=== PATIENT | male | born 1975 | race Caucasian/White ===

== ENCOUNTER 2017-04-15 10:42 | Emergency (ER) | payer OTHER ==
[~2017-04-15] VITALS: Ht 177.8 cm; Wt 89.9 kg
[2017-04-15 10:45] VITALS: TEMP 36.7; Ht 177.8 cm; Wt 89.9 kg
[2017-04-15] MEDS ORDERED: LORAZEPAM 1 MG TAB SL STA (11:24)
--- NOTE | 2017-04-15 11:33 | EMERGENCY ROOM VISIT NOTE ---
History Report prepared by Joaquina: Nancy Louise Under the Supervision of: Dr. Salas Wilson M.D. First contact with patient: 11:17 Chief Complaint: ANXIETY Stated Complaint: CHEST PAIN PANIC History of Present Illness The patient is a 42 year old male who presents to the Emergency Room with complaints of increasing anxiety over the past three months. He currently rates his discomfort as a 6/10 in severity. The patient denies any history of anxiety, but notes that over the last three months he has been experiencing increasing anxiety due to a recent break up. He reports that he is anxious over everything, noting that when he develops chest pain he worries that his symptoms are not related to his anxiety. The patient states that he is in a constant absentee-shawnee of worrying. He describes his chest pain as constantly dull, but intermittently sharp. The patient states that his symptoms are alleviated with his hand over his heart. 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 The patient reports shortness of breath, hyperventilating, and a near syncopal event today. He denies any nausea , abdominal pain, or lightheadedness. The patient stats that he quit smoking a few years ago and denies any recreational drug use. He states that he drinks alcohol daily, noting that he has been drinking a lot more than normal recently. He states that on a bad night he can drink up to a 12 pack of beer. The patient reports that this is the only thing that alleviates his anxiety. The patient denies any auditory or visual hallucinations. He additionally associates intermittent depression. Source of History: patient Onset: past three months Position: other (global) Symptom Intensity: 6/10 Quality: other (anxiety) Timing: other (increasing) Modifying Factors (Relieving): other (drinking alcohol) Associated Symptoms: + chest pain, + SOB Note: Associated Symptoms: depression, hyperventilating, near syncopal event today Review of Systems All systems have been listed, reviewed, and are negative other than those previously mentioned. Please see Additional Medical History Sheet. Past Medical & Surgical Medical Problems: (1) Hypertension Family History Hypertension Social History Smoking Status: Never Smoker Alcohol Use: heavy Marital Status: single Housing Status: lives with family Occupation Status: unemployed Current/Historical Medications Scheduled PRN Lorazepam (Ativan), 1 MG PO Q6H PRN for Anxiety Allergies Coded Allergies: No Known Allergies (Unverified , 04/15/17) Physical Exam Vital Signs Date Time Temp Pulse Resp B/P (MAP) Pulse Ox O2 Delivery O2 Flow Rate FiO2 04/15/17 14:32 108 18 143/96 97 04/15/17 14:28 108 18 143/96 97 Room Air 04/15/17 13:52 101 04/15/17 12:36 101 20 146/103 95 Room Air 04/15/17 11:31 93 18 154/106 95 Room Air 04/15/17 11:02 105 04/15/17 10:45 36.7 121 24 178/109 96 Room Air Physical Exam GENERAL: Patient awake, alert, oriented x 3. Patient is very anxious, shaking, tearful. Patient follows commands. Patient does not appear toxic. Patient is adequately hydrated and well-nourished. SKIN: No erythema, pallor, cyanosis or rash HEENT: Normal head, pupils equal, reactive to light and accommodation. Oral cavity and posterior pharynx appear normal. Neck: Without adenopathy, no neck vein distention. CHEST WALL: Patient has no tenderness to palpation of the anterior chest. LUNGS: Clear to auscultation. No wheezes, no rales, no rhonchi. HEART: No murmurs. No gallops. No rubs ABDOMEN: No masses, no rebound, no hepatomegaly or splenomegaly. EXTREMITIES: No signs of trauma or infection. NEUROLOGIC: Cranial nerves II-XII within normal limits. No gross motor sensory function deficits. Medical Decision & Procedures ER Provider Diagnostic Interpretation: X ray results are stated below per my interpretation and the radiologist's interpretation. TWO VIEW CHEST CLINICAL HISTORY: Atypical chest pain. FINDINGS: PA and lateral chest radiographs are obtained. No prior studies are available for comparison at the time of dictation. The cardiomediastinal silhouette is unremarkable. The lungs and pleural spaces are clear. There is no pneumothorax. The bony thorax appears intact. IMPRESSION: No active disease in the chest. Electronically signed by: Jatinder Larios M.D. 04/15/2017 11:51 AM Dictated Date/Time: 04/15/2017 11:50 AM Laboratory Results 04/15/17 11:00 04/15/17 11:00 Test 04/15/17 11:00 04/15/17 11:30 Red Blood Count 4.87 M/uL (4.7-6.1) Mean Corpuscular Volume 91.0 fL (80-100) Mean Corpuscular Hemoglobin 30.8 pg (25-34) Mean Corpuscular Hemoglobin Concent 33.9 g/dl (32-36) RDW Standard Deviation 43.3 fL (36.4-46.3) RDW Coefficient of Variation 13.0 % (11.5-14.5) Mean Platelet Volume 10.1 fL (7.4-10.4) Anion Gap 10.0 mmol/L (3-11) Est Creatinine Clear Calc Drug Dose 111.9 ml/min Estimated GFR () 110.5 Estimated GFR (Non- 95.4 BUN/Creatinine Ratio 8.0 (10-20) Calcium Level 8.6 mg/dl (8.5-10.1) Troponin I < 0.015 ng/ml (0-0.045) Thyroid Stimulating Hormone (TSH) 1.590 uIu/ml (0.300-4.500) Ethyl Alcohol mg/dL 43.0 mg/dl (0-3) Laboratory results as stated above per my review. Medications Administered Medications (Trade) Dose Ordered Sig/Liana Route Start Time Stop Time Status Last Admin Dose Admin Lorazepam (Ativan Tab) 1 mg NOW STAT SL 04/15/17 11:24 04/15/17 11:27 DC 04/15/17 11:30 1 MG ECG Indication: chest pain Rate (beats per minute): 98 Rhythm: normal sinus Findings: no acute ischemic change, no ectopy ED Course 1118: Past medical records reviewed. The patient was evaluated in room C10. A complete history and physical examination was performed. 1124: Ordered Ativan Tab 1 mg SL. 1413: I reevaluated the patient and he is better, but still anxious. I discussed the exam findings with him and I discussed the treatment plan. He verbalized complete understanding and agreement. He is ready to go home shortly. Medical Decision I considered multiple diagnoses including myocardial infarction, chest wall pain , pericarditis, myocarditis, aortic emergencies, pulmonary embolism, congestive heart failure, GI causes, anxiety, depression, and other significant cardiopulmonary disorders. The patient is extremely anxious. I also believe he has significant underlying depression. The patient had multiple labs, EKG and imaging performed. Please see above. He has no evidence of an acute cardiopulmonary event. I believe his blood pressure and symptoms are all related to his anxiety. The patient was given Ativan here which certainly helped. He'll be given a prescription for the same at home. Long-term he should be on antidepressant. [facility]. Blood Pressure Screening: Patient was found to have an elevated blood pressure and was referred to their primary doctor for recheck and further treatment. Medication Reconciliation: I attest that I have personally reviewed the patient' s current medication list. Impression Primary Impression: Acute anxiety Additional Impression: Depression Scribe Attestation The scribe's documentation has been prepared under my direction and personally reviewed by me in its entirety. I confirm that the note above accurately reflects all work, treatment, procedures, and medical decision making performed by me. Departure Information Dispostion Home / Self-Care Prescriptions Lorazepam (ATIVAN) 1 Mg Tab 1 MG PO Q6H Y for Anxiety, #10 TAB Prov: Salas Wilson M.D. 04/15/17 Referrals No Doctor, Assigned (PCP) Forms HOME CARE DOCUMENTATION FORM, IMPORTANT VISIT INFORMATION Patient Instructions Anxiety Disorder, My [facility] Additional Instructions 1 Ativan every 6 hours as needed for anxiety. Do not drive or operate a motor vehicle while taking Ativan. Do not drink alcohol while on Ativan. [facility]. Problem Qualifiers
[2017-04-15 11:45] LABS: HEMATOCRIT 44.3 % (42-52); MEAN CORPUSCULAR HEMOGLOBIN 30.8 pg (25-34); MEAN CORPUSCULAR HGB CONC 33.9 g/dl (32-36); MEAN PLATELET VOLUME 10.1 fL (7.4-10.4); PLATELET COUNT 231 K/uL (130-400); RED BLOOD COUNT 4.87 M/uL (4.7-6.1)
--- NOTE | 2017-04-15 11:52 | DIAGNOSTIC IMAGING REPORT ---
TWO VIEW CHEST CLINICAL HISTORY: Atypical chest pain. FINDINGS: PA and lateral chest radiographs are obtained. No prior studies are available for comparison at the time of dictation. The cardiomediastinal silhouette is unremarkable. The lungs and pleural spaces are clear. There is no pneumothorax. The bony thorax appears intact. IMPRESSION: No active disease in the chest. Electronically signed by: Jatinder Larios M.D. 04/15/2017 11:51 AM Dictated Date/Time: 04/15/2017 11:50 AM
[2017-04-15 11:54] LABS: BLOOD UREA NITROGEN 8 mg/dl (7-18); CALCIUM 8.6 mg/dl (8.5-10.1); CARBON DIOXIDE 26 mmol/L (21-32); CHLORIDE 105 mmol/L (98-107); CREATININE 0.98 mg/dl (0.60-1.40); GLUCOSE 112 mg/dl (70-99); POTASSIUM 3.5 mmol/L (3.5-5.1); SODIUM 141 mmol/L (136-145)
[2017-04-15] MEDS ORDERED: ATV/1 PO (14:25)
[2017-04-15 14:32] VITALS: BP 143/96; PULSE 108; O2SAT 97
== END 2017-04-15 14:33 | disposition home or self-care (01) ==
LOC: C.EDB 10:44 → C.EDC 14:33
DX: F41.9 Anxiety disorder, unspecified (principal); F32.9 Major depressive disorder, single episode, unspecified; I10 Essential (primary) hypertension; Z82.49 Family history of ischemic heart disease and other diseases of the circulatory system